=== PATIENT | female | born 1945 | race Caucasian/White ===

== ENCOUNTER 2019-01-10 22:46 | Observation (INO) | payer MEDICARE ==
[~2019-01-10] VITALS: Ht 170.2 cm; Wt 82.1 kg
[2019-01-10] MEDS ORDERED: SODIUM CHLORIDE 0.9% 1000ML 1,000 ML IV STA (23:15)
[2019-01-10] MEDS ORDERED: ONDANSETRON HCL INJ 2MG/ML 2ML 2 MG/ML VIAL IV STA (23:26)
[2019-01-11] VITALS (10 sets, daily range): BP systolic 130–175; BP diastolic 75–96
[2019-01-11 00:06] LABS: BASOPHILS % 0.4 % (0.0-1.0); EOSINOPHILS # (AUTO) 0.2 (0.0-0.4); HEMATOCRIT 39.2 % (34.2-44.1); HEMOGLOBIN 12.9 g/dL (12.0-16.0); LYMPHOCYTES # (AUTO) 1.2 (1.0-3.2); MEAN CORPUSCULAR HEMOGLOBIN 30.1 pg (28-32); MEAN CORPUSCULAR HGB CONC 32.9 g/dL (31-35); MEAN CORPUSCULAR VOLUME 91.6 fL (81-99); MONOCYTES # (AUTO) 0.6 (0.2-0.8); MONOCYTES % 8.1 % (4.4-11.3); NEUTROPHILS # (AUTO) 5.5 (2.1-6.9); NEUTROPHILS % 73.4 % (38.7-80.0); PLATELET COUNT 185 x10e3/uL (140-360); RED BLOOD COUNT 4.28 x10e6/uL (3.6-5.1); RED CELL DISTRIBUTION WIDTH 13.2 % (11.7-14.4)
[2019-01-11 00:14] LABS: INR 0.9; PROTHROMBIN TIME 12.6 seconds (11.9-14.5)
[2019-01-11 00:15] LABS: PARTIAL THROMBOPLASTIN TIME 32.6 seconds (23.8-35.5)
--- NOTE | 2019-01-11 00:26 | Diagnostic Imaging Report ---
EXAMINATION: CHEST SINGLE (PORTABLE) INDICATION: Hypertension, near syncope. COMPARISON: None FINDINGS: TUBES and LINES: None. LUNGS: Lungs are well inflated. Mild patchy left basilar opacity, likely atelectasis. There is no evidence of pneumonia or pulmonary edema. PLEURA: No pleural effusion or pneumothorax. HEART AND MEDIASTINUM: The cardiomediastinal silhouette is unremarkable. BONES AND SOFT TISSUES: No acute osseous abnormality. UPPER ABDOMEN: No free air under the diaphragm. IMPRESSION: No acute radiographic abnormality. Signed by: Dr. Wade Narayanan MD on 01/11/2019 12:23 AM
[2019-01-11 00:29] LABS: ALANINE AMINOTRANSFERASE 14 IU/L (0-55); ALBUMIN 4.1 g/dL (3.5-5.0); ALBUMIN/GLOBULIN RATIO 1.5 (0.8-2.0); ALKALINE PHOSPHATASE 80 IU/L (40-150); ANION GAP 15.6 mmol/L (8-16); BLOOD UREA NITROGEN 16 mg/dL (7-26); BUN/CREATININE RATIO 20 (6-25); CALCIUM 9.7 mg/dL (8.4-10.2); CARBON DIOXIDE 28 mmol/L (22-29); CHLORIDE 99 mmol/L (98-107); CREATINE KINASE 84 IU/L (29-168); CREATININE, SERUM 0.82 mg/dL (0.57-1.11); EST GLOMERULAR FILTRATION RATE > 60 ML/MIN (60-); GLUCOSE 122 mg/dL (74-118); MAGNESIUM 2.1 MG/DL (1.3-2.1); POTASSIUM 3.6 mmol/L (3.5-5.1); SODIUM 139 mmol/L (136-145)
--- NOTE | 2019-01-11 00:37 | Diagnostic Imaging Report ---
EXAMINATION: Head CT without contrast. HISTORY:Dizziness, high blood pressure. COMPARISON:None. TECHNIQUE: Multidetector axial images were obtained from the foramen magnum to the vertex without contrast. The images were reconstructed using brain and bone algorithms. Thin section brain images were reformatted into coronal and sagittal planes. Dose modulation, iterative reconstruction, and/or weight based adjustment of the mA/kV was utilized to reduce the radiation dose to as low as reasonably achievable. Intravenous contrast: None IMAGE QUALITY: Acceptable. FINDINGS: Skull/scalp: No lytic or blastic. lesions. No surgical changes. Parenchyma: Nonspecific bilateral frontoparietal patchy white matter hypodensity are likely related to small vessel ischemic changes. No acute hemorrhage, mass or acute major vascular territorial infarct. Arteries: No density suggestive of thrombosis. Dural sinuses: No abnormal density suggestive of thrombosis. Ventricles: No hydrocephalus or displacement. Extra-axial spaces: No abnormal density. Brain volume: Normal for age. Craniocervical junction: No mass, Chiari malformation, or basilar invagination. Sella: No mass. Paranasal/mastoid sinuses: Imaged portions unremarkable. IMPRESSION: No acute intracranial abnormality. Mild supratentorial white matter microvascular ischemic changes. Signed by: Dr. Socorro Coles M.D. on 01/11/2019 12:33 AM
[2019-01-11 02:08] LABS: BILIRUBIN,URINE NEGATIVE (NEGATIVE); CLARITY,URINE CLEAR (CLEAR); COLOR,URINE YELLOW (YELLOW); KETONES,URINE NEGATIVE (NEGATIVE); LEUKOCYTE ESTERASE ,URINE NEGATIVE (NEGATIVE); NITRITE,URINE NEGATIVE (NEGATIVE); PROTEIN,URINE DIPSTICK NEGATIVE (NEGATIVE); URINE UROBILINOGEN 0.2 mg/dL (0.2 - 1)
[2019-01-11 02:30] LABS: BACTERIA,URINE FEW /HPF; EPITHELIAL CELLS,URINE FEW /LPF; WBC,URINE (MAN) 0-5 /HPF (0-5)
[2019-01-11] MEDS ORDERED: MECLIZINE HCL 12.5 MG TAB PO PRN (03:00)
[2019-01-11] MEDS ORDERED: ONDANSETRON HCL INJ 2MG/ML 2ML 2 MG/ML VIAL IV PRN (03:00)
--- OUTSIDE RECORDS SUMMARY | 2019-01-11 03:10 | XMS REPORT ---
Author Author [facility] Address Unknown Phone Unavailable Care Team Providers Care Supervisor Special Services Name Role Phone Cha HENNESSY Unavailable Unavailable Problems This patient has no known problems. Allergies, Adverse Reactions, Alerts This patient has no known allergies or adverse reactions. Medications This patient has no known medications. Results Test Description Test Time Test Comments Text Results Atomic Results Result Comments CT BRAIN WO 2019-01-11 00:30:00 [facility] [address] [address] Patient Name: [place] MEREDITH MR #: [id number] : 1945 Age/Sex: 73/F Req #: [id number] [facility] Physician: Ordered by: YOLI HENNESSY MD Report #: [id number] Location: ER Room/Bed: Procedure: [id number] CT/CT BRAIN WO Exam Date: 01/11/19 Exam Time: 0000 REPORT STATUS: Signed EXAMINATION: Head CT without contrast. HISTORY:Dizz iness, high blood pressure. COMPARISON:None. TECHNIQUE: Multidetector axial images were obtained from the foramen magnum to the vertex without contrast. The images were reconstructed using brain and bone algorithms. Thin section brain images were reformatted into coronal and sagittal planes. Dose modulation, iterative reconstruction, and/or weight based adjustment of the mA/kV was utilized to reduce the radiation dose to as low as reasonably achievable. Intravenous contrast: None IMAGE QUALITY: Acceptable. FINDINGS: Skull/scalp: No lytic or blastic. lesions. No surgical changes. Parenchyma: Nonspecific bilateral frontoparietal patchy white matter hypodensity are likely related to small vessel ischemic changes. No acute hemorrhage, mass or acute major vascular territorial infarct. Arteries: No density suggestive of thrombosis. Dural sinuses: No abnormal density suggestive of thrombosis. Ventricles: No hydrocephalus or displacement. Extra-axial spaces: No abnormal density. Brain volume: Normal for age. Craniocervical junction: No mass, Chiari malformation, or basilar invagination. Sella: No mass. Paranasal/mastoid sinuses: Imaged portions unremarkable. IMPRESSION: No acute intracranial abnormality. Mild supratentorial white matter microvascular ischemic changes. Signed by: Dr. Socroro Coles M.D. on 01/11/2019 12:33 AM Dictated By: SOCORRO COLES MD Transcribed By: JORDY on 01/11/1932 COPY TO: YOLI HENNESSY MD CHEST SINGLE (PORTABLE) 2019-01-11 00:20:00 [address] [address] Patient Name: OH MEREDITH MR #: [id number] : 1945 Age/Sex: 73/F Req #: [id number] Adm Physician: Ordered by: YOLI HENNESSY MD Report #: [id number] Location: ER Room/Bed: Procedure: [id number] DX/CHEST SINGLE (PORTABLE) Exam Date: 01/11/19 Exam Time: 0000 REPORT STATUS: Signed EXAMINATION: CHEST SINGLE (PORTABLE) KONG CATION: Hypertension, near syncope. COMPARISON: None FINDINGS: TUBES and LINES: None. LUNGS: Lungs are well inflated. Mild patchy left basilar opacity, likely atelectasis. There is no evidence of pneumonia or pulmonary edema. PLEURA: No pleural effusion or pneumothorax. HEART AND MEDIASTINUM: The cardiomediastinal silhouette is unremarkable. BONES AND SOFT TISSUES: No acute osseous abnormality. UPPER ABDOMEN: No free air under the diaphragm. IMPRESSION: No acute radiographic abnormality. Signed by: Dr. Jason To MD on 01/11/2019 12:23 AM Dictated By: JASON TO MD Transcribed By: JORDY on 01/11/1922 COPY TO: YOLI HENNESSY MD SCR MAMM BILATERAL QUINTIN CAD DIGITAL 2018-12-12 17:18:46 - SCR MAMM BILATERAL QUINTIN CAD DIGITALBILATERAL DIGITAL SCREENING MAMMOGRAM 3D/2D WITH CAD: 12/12/2018CLINICAL: Asymptomatic. Digital breast tomosynthesis was performed in addition to routine CC and MLO views. Current mammographic images were evaluated by either a Viewpoint M-Vu or a [employer] ImageChecker CAD (computer aided detection system). No prior exams were available for comparison. The tissue of both breasts is heterogeneously dense. This may lower the sensitivity of mammography. No suspicious mass, architectural distortion, malignant type calcification, or lymph node abnormality detected. IMPRESSION: NEGATIVEThere is no mammographic evidence of malignancy. Resume annual screening mammography in one year. Clara Cummings M.D. cc/penrad:12/12/2018 17:18:46 Entry: - 12/13/2018 15:22:40Imaging Technologist: Babita GALINDO, [facility]-FWletter sent: BIRADS 1-2 Normal Mammogram BI-RADS: 1 Negative
[2019-01-11] MEDS: FAMOTIDINE 20 MG/2 ML VIAL IV SCH ×4 (03:22→21:12)
--- NOTE | 2019-01-11 03:53 | NUR ---
Received report from RAMON Allred nurse. Patient arrived via stretcher. Call light within reach. Patient in no pain or distress. A&Ox3
--- NOTE | 2019-01-11 07:26 | NUR ---
GAVE REPORT TO ONCOMING NURSE. PATIENT IN BED. CALL LIGHT WITHIN REACH.
[2019-01-11 08:28] LABS: CREATINE KINASE 93 IU/L (29-168)
--- NOTE | 2019-01-11 10:30 | NUR ---
H&P cc: near passing out HPI: 73yoF, PCP , almost passed out. Pt complains of severe dizziness. no cp/sob. Pt has had BPPV, but no vertigo now; Just severe dizziness affecting ambulation. PMH: BPPV, HTN PHSx: none Allergies; see emrFh/SH; ; no cigs meds; see MAR ROS: no f/c/s/n/V/D/CHAVEZ/vision changes/cp/sob/skin rash v/s revd PE tireda appearing anicteric ns1s2 mod bs soft nt nd no e/t a&ox3; malone; no visual field deficits; motor 5/5 in all ext skin dry n. affect labs/meds revd A/P: 73yoF Presyncope Dizziness HTN PLAN check lipids; check TSH; start ASA; PT consult; echo/carotids; control BP Lovenox; pepcid dispo: f/u studies; Chin Chandler MD, PhD.
[2019-01-11 10:51] LABS: CHOL/HDL RATIO 4.5 (3.0-3.6)
[2019-01-11 11:11] LABS: THYROID STIMULATING HORMONE 2.963 uIU/mL (0.350-4.940)
[2019-01-11 16:24] LABS: CREATINE KINASE 100 IU/L (29-168)
--- NOTE | 2019-01-11 19:32 | NUR ---
Received report from previous nurse. Call light within reach. Patient sitting on the sofa.
[2019-01-11] MEDS: METOPROLOL SUCCINATE 25 MG TAB XL PO SCH (21:12)
[2019-01-12] VITALS: BP 159/78
[2019-01-12] MEDS: METOPROLOL SUCCINATE 25 MG TAB XL PO SCH (05:39)
[2019-01-12 05:40] VITALS: BP 167/74
[2019-01-12 05:55] LABS: BASOPHILS % 0.9 % (0.0-1.0); EOSINOPHILS # (AUTO) 0.2 (0.0-0.4); EOSINOPHILS % 4.5 % (0.0-6.0); HEMATOCRIT 39.9 % (34.2-44.1); HEMOGLOBIN 13.2 g/dL (12.0-16.0); LYMPHOCYTES # (AUTO) 1.3 (1.0-3.2); LYMPHOCYTES % 29.6 % (18.0-39.1); MEAN CORPUSCULAR HEMOGLOBIN 30.4 pg (28-32); MEAN CORPUSCULAR HGB CONC 33.1 g/dL (31-35); MEAN CORPUSCULAR VOLUME 91.9 fL (81-99); MONOCYTES # (AUTO) 0.5 (0.2-0.8); MONOCYTES % 10.2 % (4.4-11.3); NEUTROPHILS # (AUTO) 2.4 (2.1-6.9); NEUTROPHILS % 54.6 % (38.7-80.0); PLATELET COUNT 182 x10e3/uL (140-360); RED BLOOD COUNT 4.34 x10e6/uL (3.6-5.1); RED CELL DISTRIBUTION WIDTH 13.3 % (11.7-14.4)
[2019-01-12 06:27] LABS: ALANINE AMINOTRANSFERASE 13 IU/L (0-55); ALBUMIN 3.5 g/dL (3.5-5.0); ALBUMIN/GLOBULIN RATIO 1.2 (0.8-2.0); ALKALINE PHOSPHATASE 72 IU/L (40-150); ANION GAP 12.1 mmol/L (8-16); BLOOD UREA NITROGEN 13 mg/dL (7-26); BUN/CREATININE RATIO 18 (6-25); CALCIUM 9.3 mg/dL (8.4-10.2); CARBON DIOXIDE 30 mmol/L (22-29); CHLORIDE 105 mmol/L (98-107); CHOL/HDL RATIO 4.9 (3.0-3.6); CHOLESTEROL 195 MD/DL (0-199); CREATININE, SERUM 0.73 mg/dL (0.57-1.11); EST GLOMERULAR FILTRATION RATE > 60 ML/MIN (60-); GLUCOSE 90 mg/dL (74-118); HDL CHOLESTEROL 40 MG/DL (40-60); LDL CHOLESTEROL 126 MG/DL (60-130); POTASSIUM 4.1 mmol/L (3.5-5.1); SODIUM 143 mmol/L (136-145); TRIGLYCERIDES 143 MG/DL (0-149)
--- NOTE | 2019-01-12 07:08 | NUR ---
GAVE REPORT TO ONCOMING NURSE. PATIENT SITTING ON THE SOFA. PATIENT IN NO PAIN OR DISTRESS. CALL LIGHT WITHIN REACH
[2019-01-12] MEDS ORDERED: LOPRESSOR25 MG PO (07:42)
[2019-01-12] MEDS ORDERED: HYDRALAZINE HCL10 MG PO (07:42)
[2019-01-12] MEDS ORDERED: PRAVASTATIN SOD20 MG PO (07:42)
[2019-01-12] MEDS ORDERED: Meclizine Hcl PO (07:42)
[2019-01-12 08:19] VITALS: BP 166/85
[2019-01-12] MEDS: FAMOTIDINE 20 MG/2 ML VIAL IV SCH (08:31)
[2019-01-12 08:43] VITALS: BP 166/85
[2019-01-12] MEDS ORDERED: METOPROLOL TARTRATE 25 MG TAB PO SCH (09:00)
[2019-01-12 12:39] VITALS: BP 134/74
[2019-01-12] MEDS ORDERED: HYDRALAZINE HCL 10 MG TAB PO SCH (14:00)
[2019-01-12] MEDS ORDERED: ENOXAPARIN SOD INJ 40 MG/0.4 ML SYR SC SCH (17:00)
[2019-01-12] MEDS ORDERED: PRAVASTATIN 20 MG TAB PO SCH (21:00)
== END 2019-01-12 14:00 | disposition home or self-care (01) ==
LOC: ER 22:46 → ERHOLD 01-11 03:07 → IMCU 01-11 03:49 → MED/SURG 01-11 17:22
PROVIDERS: ADMIT Internal Medicine; ATTEND Internal Medicine
DX: R42 Dizziness and giddiness (principal); I10 Essential (primary) hypertension
CPT/HCPCS: 36415 ×2; 70450; 71045; 80053 ×2; 80061 ×2; 81001; 82550 ×2; 82553 ×2; 83735; 83880; 84443; 84484 ×2; 85025 ×2; 85610; 85730; 87086; 93005; 93306; 93880; 97116; 97161; 99284; G0378 ×2; J2405; J7030; J8597

== ENCOUNTER 2019-04-17 17:04 | Observation (INO) | payer MEDICARE ==
[~2019-04-17] VITALS: Ht 170.2 cm; Wt 82.1 kg
[~2019-04-17 17:04] MED LIST: HYDRALAZINE HCL10 MG PO; LOPRESSOR25 MG PO; Meclizine Hcl PO; PRAVASTATIN SOD20 MG PO
[2019-04-17] MEDS ORDERED: HYDRALAZINE HCL 20 MG/ML VIAL IV STA (17:52)
[2019-04-17] MEDS ORDERED: ASPIRIN 81 MG CHEW TAB PO ONE (18:00)
[2019-04-17 18:34] LABS: BASOPHILS # (AUTO) 0.1 (0.0-0.1); BASOPHILS % 0.8 % (0.0-1.0); EOSINOPHILS # (AUTO) 0.1 (0.0-0.4); EOSINOPHILS % 0.8 % (0.0-6.0); HEMATOCRIT 41.9 % (34.2-44.1); HEMOGLOBIN 14.3 g/dL (12.0-16.0); LYMPHOCYTES # (AUTO) 0.9 (1.0-3.2); LYMPHOCYTES % 14.8 % (18.0-39.1); MEAN CORPUSCULAR HEMOGLOBIN 30.6 pg (28-32); MEAN CORPUSCULAR HGB CONC 34.1 g/dL (31-35); MEAN CORPUSCULAR VOLUME 89.7 fL (81-99); MONOCYTES # (AUTO) 0.4 (0.2-0.8); MONOCYTES % 6.7 % (4.4-11.3); NEUTROPHILS # (AUTO) 4.7 (2.1-6.9); NEUTROPHILS % 76.7 % (38.7-80.0); PLATELET COUNT 198 x10e3/uL (140-360); RED BLOOD COUNT 4.67 x10e6/uL (3.6-5.1); RED CELL DISTRIBUTION WIDTH 12.9 % (11.7-14.4)
[2019-04-17 18:51] LABS: ALANINE AMINOTRANSFERASE 25 IU/L (0-55); ALBUMIN 4.2 g/dL (3.5-5.0); ALBUMIN/GLOBULIN RATIO 1.5 (0.8-2.0); ALKALINE PHOSPHATASE 79 IU/L (40-150); ANION GAP 15.7 mmol/L (8-16); BLOOD UREA NITROGEN 18 mg/dL (7-26); BUN/CREATININE RATIO 25 (6-25); CALCIUM 9.2 mg/dL (8.4-10.2); CARBON DIOXIDE 25 mmol/L (22-29); CHLORIDE 98 mmol/L (98-107); CREATINE KINASE 79 IU/L (29-168); CREATININE, SERUM 0.73 mg/dL (0.57-1.11); EST GLOMERULAR FILTRATION RATE > 60 ML/MIN (60-); GLUCOSE 115 mg/dL (74-118); POTASSIUM 3.7 mmol/L (3.5-5.1); SODIUM 135 mmol/L (136-145)
--- NOTE | 2019-04-17 19:08 | NUR ---
report given to Trenton HOLLOWAY
[2019-04-17] MEDS ORDERED: IOPAMIDOL 370 MG/ML 200 ML INFUS..BTL INJ ONE (19:34)
[2019-04-17] MEDS ORDERED: SODIUM CHLORIDE 0.9% 50ML 50 ML ONE (19:34)
--- NOTE | 2019-04-17 19:53 | Diagnostic Imaging Report ---
EXAMINATION: Head CT without contrast. HISTORY:Hypertension. COMPARISON:CT brain from 01/10/2019. TECHNIQUE: Multidetector axial images were obtained from the foramen magnum to the vertex without contrast. The images were reconstructed using brain and bone algorithms. Thin section brain images were reformatted into coronal and sagittal planes. Dose modulation, iterative reconstruction, and/or weight based adjustment of the mA/kV was utilized to reduce the radiation dose to as low as reasonably achievable. Intravenous contrast: None IMAGE QUALITY: Acceptable. FINDINGS: Skull/scalp: No lytic or blastic. lesions. No surgical changes. Parenchyma: Nonspecific bilateral frontoparietal patchy white matter hypodensity are likely related to small vessel ischemic changes. No acute hemorrhage, mass or acute major vascular territorial infarct. Arteries: No density suggestive of thrombosis. Mild atherosclerotic calcification in bilateral carotid siphon. Dural sinuses: No abnormal density suggestive of thrombosis. Ventricles: No hydrocephalus or displacement. Extra-axial spaces: No abnormal density. Brain volume: Normal for age. Craniocervical junction: No mass, Chiari malformation, or basilar invagination. Sella: No mass. Paranasal/mastoid sinuses: Imaged portions unremarkable. IMPRESSION: No acute intracranial abnormality. No change since CT brain from 01/10/2019. Chronic findings: Mild supratentorial white matter microvascular ischemic changes. Signed by: Dr. Socorro Coles M.D. on 04/17/2019 7:50 PM
--- NOTE | 2019-04-17 20:20 | Diagnostic Imaging Report ---
EXAMINATION: CHEST SINGLE (PORTABLE) INDICATION: Chest pain. COMPARISON: 01/10/2019. FINDINGS: TUBES and LINES: None. LUNGS: Lungs are well inflated. There is mild prominence of the central pulmonary vasculature, consistent with pulmonary venous congestion. PLEURA: No pleural effusion or pneumothorax. HEART AND MEDIASTINUM: Cardiac size is mildly enlarged. Prominence of the pulmonary chuy bilaterally suggestive of enlarged pulmonary arteries. BONES AND SOFT TISSUES: No acute osseous lesion. Soft tissues are unremarkable. UPPER ABDOMEN: No free air under the diaphragm. IMPRESSION: Mild bilateral pulmonary venous congestion. Signed by: Dr. Tenzin Cali M.D. on 04/17/2019 8:17 PM
--- NOTE | 2019-04-17 20:28 | Diagnostic Imaging Report ---
EXAM: CT Chest WITH contrast 04/17/2019 5:57 PM INDICATION: Pulmonary embolism. Chest pain COMPARISON: None TECHNIQUE: Chest was scanned utilizing a multidetector helical scanner from the lung apex through the level of the adrenal glands without administration of IV contrast. Coronal and sagittal reformations were obtained. Pulmonary embolism protocol was performed. IV CONTRAST: 100 mL Isovue 300 RADIATION DOSE: Total DLP: 1481.05 mGy*cm Estimated effective dose: (DLP x 0.014 x size factor) mSv COMPLICATIONS: None FINDINGS: LINES/ TUBES: None. LUNGS AND AIRWAYS: 5 mm spiculated nodule in the right middle lobe on image 69 bibasilar and lingular subsegmental atelectasis. No focal consolidations.. No filling defects within the pulmonary arteries. Airways are normal. PLEURA: The pleural spaces are clear. HEART AND MEDIASTINUM: The thyroid gland is normal. No mediastinal, hilar or axillary lymphadenopathy. The heart is normal in size.. There is no pericardial effusion. There are mild atherosclerotic calcifications in the aorta and coronary arteries. UPPER ABDOMEN: Limited non-contrast views of the upper abdomen show no abnormality within the visualized liver, spleen, pancreas, or kidneys. The adrenal glands are normal. BONES: There are degenerative changes in the thoracic spine. SOFT TISSUES: Unremarkable. IMPRESSION: No acute pulmonary embolism. Signed by: Dr. Tenzin Cali M.D. on 04/17/2019 8:25 PM
[2019-04-17] MEDS ORDERED: HYDRALAZINE HCL 20 MG/ML VIAL IV PRN (21:15)
[2019-04-18] VITALS (7 sets, daily range): BP systolic 132–198; BP diastolic 59–110
[2019-04-18] MEDS: FAMOTIDINE 20 MG/2 ML VIAL IV SCH ×3 (01:12→20:41)
[2019-04-18 03:36] LABS: CREATINE KINASE 64 IU/L (29-168)
--- NOTE | 2019-04-18 06:22 | NUR ---
H&P cc: elevated BP HPI: 73yoF, PCP , almost passed out. Pt complains of severe dizziness. no cp/sob. Pt has had BPPV, but no vertigo now; Just severe dizziness affecting ambulation. PMH: BPPV, HTN, Presyncope, Dizziness PHSx: none Allergies; see emrFh/SH; ; no cigs meds; see MAR ROS: no f/c/s/n/V/D/CHAVEZ/vision changes/cp/sob/skin rash v/s revd PE tireda appearing anicteric ns1s2 mod bs soft nt nd no e/t a&ox3; malone; no visual field deficits; motor 5/5 in all ext skin dry n. affect labs/meds revd A/P: 73yoF Hypertensive emergency- use BB/hydralazine; Overweight- lipids BMI 28.3- HLD- statin Prop: scd; pepcid Chin Chandler MD, PhD.
[2019-04-18] MEDS ORDERED: ACETAMINOPHEN 325 MG TAB PO PRN (06:30)
[2019-04-18] MEDS ORDERED: SENNOSIDES 8.6 MG TAB PO PRN (06:30)
[2019-04-18] MEDS ORDERED: MECLIZINE HCL 12.5 MG TAB PO PRN (06:30)
[2019-04-18 06:35] LABS: BASOPHILS % 0.6 % (0.0-1.0); EOSINOPHILS # (AUTO) 0.1 (0.0-0.4); EOSINOPHILS % 1.5 % (0.0-6.0); HEMATOCRIT 43.6 % (34.2-44.1); HEMOGLOBIN 14.6 g/dL (12.0-16.0); LYMPHOCYTES # (AUTO) 1.2 (1.0-3.2); LYMPHOCYTES % 19.9 % (18.0-39.1); MEAN CORPUSCULAR HEMOGLOBIN 30.4 pg (28-32); MEAN CORPUSCULAR HGB CONC 33.5 g/dL (31-35); MEAN CORPUSCULAR VOLUME 90.6 fL (81-99); MONOCYTES # (AUTO) 0.6 (0.2-0.8); MONOCYTES % 9.7 % (4.4-11.3); NEUTROPHILS # (AUTO) 4.2 (2.1-6.9); PLATELET COUNT 191 x10e3/uL (140-360); RED BLOOD COUNT 4.81 x10e6/uL (3.6-5.1)
[2019-04-18 06:50] LABS: ALANINE AMINOTRANSFERASE 22 IU/L (0-55); ALBUMIN 4.1 g/dL (3.5-5.0); ALBUMIN/GLOBULIN RATIO 1.4 (0.8-2.0); ALKALINE PHOSPHATASE 77 IU/L (40-150); ANION GAP 17.4 mmol/L (8-16); BLOOD UREA NITROGEN 13 mg/dL (7-26); BUN/CREATININE RATIO 18 (6-25); CALCIUM 9.3 mg/dL (8.4-10.2); CARBON DIOXIDE 24 mmol/L (22-29); CHLORIDE 102 mmol/L (98-107); CHOL/HDL RATIO 4.4 (3.0-3.6); CHOLESTEROL 245 MD/DL (0-199); CREATININE, SERUM 0.72 mg/dL (0.57-1.11); EST GLOMERULAR FILTRATION RATE > 60 ML/MIN (60-); GLUCOSE 95 mg/dL (74-118); HDL CHOLESTEROL 56 MG/DL (40-60); LDL CHOLESTEROL 169 MG/DL (60-130); POTASSIUM 3.4 mmol/L (3.5-5.1); SODIUM 140 mmol/L (136-145); TRIGLYCERIDES 99 MG/DL (0-149)
--- NOTE | 2019-04-18 06:59 | NUR ---
report given to liz mayorga
[2019-04-18] MEDS ORDERED: METOPROLOL TARTRATE 25 MG TAB PO SCH (09:00)
--- NOTE | 2019-04-18 09:30 | NUR ---
Patient received from the ER she arrived in stretcher able to independently transfer from stretcher to bed, she is alert and oriented x3, verbalizing needs, has IV access to left Antecubital #20 gauge. Oriented to room and use of call light. Verbalized understanding to call when needing assistance.
[2019-04-18] MEDS: SODIUM CHLORIDE FLUSH 10 ML SYR INJ PRN ×2 (09:57→13:37)
[2019-04-18 10:25] LABS: CREATINE KINASE MB 2.2 ng/mL (0-5.0)
[2019-04-18] MEDS: ONDANSETRON HCL INJ 2MG/ML 2ML 2 MG/ML VIAL IV PRN ×2 (13:37→20:46)
[2019-04-18] MEDS: HYDRALAZINE HCL 25 MG TAB PO SCH ×2 (16:30→21:45)
[2019-04-18] MEDS ORDERED: LABETALOL HCL 5 MG/ML 20ML VIAL IV STA ×2 (16:36→17:51)
[2019-04-18] MEDS ORDERED: PROMETHAZINE 12.5MG/ NACL 0.9% 12.5 MG/50 ML BAG IV PRN (16:45)
[2019-04-18] MEDS ORDERED: PROMETHAZINE 12.5MG/ NACL 0.9% 12.5 MG/50 ML BAG IV ONE (16:45)
[2019-04-18] MEDS ORDERED: LABETALOL HCL 5 MG/ML 20ML VIAL IV PRN (16:45)
[2019-04-18] MEDS: LABETALOL HCL 100 MG TAB PO SCH ×2 (16:51→20:42)
[2019-04-18] MEDS ORDERED: SODIUM CHLORIDE 0.9% 250ML 250 ML ONE (16:54)
--- NOTE | 2019-04-18 17:30 | NUR ---
Called Dr. Chandler to make him aware patient blood pressure 198/110 received orders discontinue metoprolol PO and to give labetalol 5 mg. IV and 100 mg labetalol PO now dose.
--- NOTE | 2019-04-18 18:00 | NUR ---
Called Dr. Chandler to make him aware patient blood pressure continued to be uncontrolled 196/86, received orders to give another 5 mg IV labetalol, and to transfer to [facility].
--- NOTE | 2019-04-18 18:15 | NUR ---
Patient transferred to ICU handoff report given to Boni Haynes RN.
[2019-04-18] MEDS ORDERED: ZOLPIDEM TARTRATE 5 MG TAB PO PRN (21:00)
[2019-04-18] MEDS ORDERED: SIMVASTATIN 20 MG TAB PO SCH (21:00)
[2019-04-19 00:30] VITALS: BP 139/64
[2019-04-19 04:00] VITALS: BP 135/78
[2019-04-19] MEDS: HYDRALAZINE HCL 25 MG TAB PO SCH (05:58)
[2019-04-19 07:07] VITALS: BP 136/91
[2019-04-19 09:00] VITALS: BP 136/91
[2019-04-19] MEDS: LABETALOL HCL 100 MG TAB PO SCH (09:00)
[2019-04-19] MEDS: FAMOTIDINE 20 MG/2 ML VIAL IV SCH (09:00)
[2019-04-19] MEDS ORDERED: Meclizine Hcl PO (09:53)
[2019-04-19] MEDS ORDERED: HYDRALAZINE HCL25 MG PO (09:53)
--- NOTE | 2019-04-19 09:56 | NUR ---
D/C summary Principal Dx: Hypertensive emergency- use BB/hydralazine; Secondary dx: Overweight- lipids BMI 28.3- HLD- statin Prop: scd; pepcid d/c home f/u pcp 1 week stable d/c>35misn Chin Chandler MD, PhD.
== END 2019-04-19 12:46 | disposition home or self-care (01) ==
LOC: ER 17:04 → ERHOLD 21:11 → IMCU 04-18 08:33 → ICU 04-18 18:20
PROVIDERS: ADMIT Internal Medicine; ATTEND Internal Medicine
DX: I16.9 Hypertensive crisis, unspecified (principal); R07.9 Chest pain, unspecified; Z88.2 Allergy status to sulfonamides; I16.1 Hypertensive emergency; E66.3 Overweight; Z68.28 Body mass index [BMI] 28.0-28.9, adult; E78.5 Hyperlipidemia, unspecified
CPT/HCPCS: 36415 ×2; 70450; 71045; 71260; 80053 ×2; 80061; 82550 ×2; 82553 ×2; 83880; 84484 ×2; 85025 ×2; 93005 ×2; 93306; 99284; G0378 ×3; J0360 ×2; J2405; J2550; J3490; J7050; J8597; Q9967